=== PATIENT | male | born 1935 | race Caucasian/White ===

== ENCOUNTER 2018-12-14 01:32 | Emergency (ER) | payer OTHER ==
[2018-12-14 01:52] VITALS: TEMP 98.2; BMI 25.1
--- NOTE | 2018-12-14 01:55 | PDOC ---
Attending Attestation - Resident Resident Name: Ritesh Solitario - ED Attending Attestation I have performed the following: I have examined & evaluated the patient, The case was reviewed & discussed with the resident, I agree w/resident's findings & plan - HPI HPI: 12/14/18 04:29 83-year-old male status post mechanical fall striking the back of his head. Family is requesting blood work. - Physicial Exam PE: 12/14/18 04:30 Agree with resident's exam - Medical Decision Making 12/14/18 04:31 83-year-old male status post mechanical fall Family is requesting labs which were performed and indicating mild dehydration IV fluid normal saline 500 mL bolus given Family and patient advised to have them rechecked in 48-72 hours and encourage by mouth fluid intake CT scan of the head and cervical spine show no acute traumatic injury Laceration repair by the emergency medicine resident
--- NOTE | 2018-12-14 01:56 | PDOC ---
History of Present Illness - General Chief Complaint: Injury Stated Complaint: FALL,HEAD INJURY Time Seen by Provider: 12/14/18 01:50 - History of Present Illness Initial Comments: 12/14/18 01:53 83 yo M with h/o depression, HTN who p/w closed head injury s/p fall 1 hour [employer]. Patient reports sustaining fall this evening when ambulating in hallway. States that he slipped on rug, fell backwards hitting his head on floor, with subsequent bleeding. Was on ground 2 minutes, before up and ambulatory. Denies AC use. Does not recall last tetanus. Patient denies SANTILLAN, vision change, palpitations, cough, wheezing, orthopena, PND , leg swelling/pain, N/V, F,C, CP, SOB, urinary complaints, hematuria, BPR, abdominal pain, diarrhea, constipation, lightheadedness, weakness, sensory changes. PMHx: as noted above ROS: as noted SHx: Denies Etoh, IVDA, tobacco use Allergies: PCN Past History - Past Medical History Allergies/Adverse Reactions: Allergies Allergy/AdvReac Type Severity Reaction Status Date / Time Penicillins Allergy Verified 12/14/18 01:52 Home Medications: Ambulatory Orders Amlodipine Besylate/Benazepril [Lotrel ] 1 each PO DAILY 12/14/18 HTN: Yes - Suicide/Smoking/Psychosocial Hx Smoking History: Never smoked Have you smoked in the past 12 months: No Information on smoking cessation initiated: No Hx Alcohol Use: Yes (occasional) Drug/Substance Use Hx: No Review of Systems - Review of Systems Comments:: 12/14/18 01:54 GENERAL/CONSTITUTIONAL: No fever or chills. No weakness. HEAD, EYES, EARS, NOSE AND THROAT: No change in vision. No ear pain or discharge. No sore throat. CARDIOVASCULAR: No chest pain or shortness of breath RESPIRATORY: No cough, wheezing, or hemoptysis. GASTROINTESTINAL: No nausea, vomiting, diarrhea or constipation. GENITOURINARY: No dysuria, frequency, or change in urination. MUSCULOSKELETAL: No joint or muscle swelling or pain. No neck or back pain. SKIN: No rash NEUROLOGIC: No headache, vertigo, loss of consciousness, or change in strength/ sensation. ENDOCRINE: No increased thirst. No abnormal weight change HEMATOLOGIC/LYMPHATIC: No anemia, easy bleeding, or history of blood clots. ALLERGIC/IMMUNOLOGIC: No hives or skin allergy. *Physical Exam - Vital Signs Last Vital Signs Temp Pulse Resp BP Pulse Ox 98.2 F 66 20 200/101 H 98 12/14/18 01:32 12/14/18 01:32 12/14/18 01:32 12/14/18 01:32 12/14/18 01:32 - Physical Exam Comments: 12/14/18 01:54 GENERAL: Awake, alert, and fully oriented, in no acute distress HEAD: No signs of trauma, normocephalic, atraumatic EYES: PERRLA, EOMI, sclera anicteric, conjunctiva clear ENT: Auricles normal inspection, hearing grossly normal, nares patent, oropharynx clear without exudates. Moist mucosa NECK: Normal ROM, supple, no lymphadenopathy, JVD, or masses LUNGS: No distress, speaks full sentences, clear to auscultation bilaterally HEART: Regular rate and rhythm, normal S1 and S2, no murmurs, rubs or gallops, peripheral pulses normal and equal bilaterally. ABDOMEN: Soft, nontender, normoactive bowel sounds. No guarding, no rebound. No masses EXTREMITIES : Normal inspection, Normal range of motion, no edema. No clubbing or cyanosis. NEUROLOGICAL: Cranial nerves II through XII grossly intact. Normal speech, normal gait, no focal sensorimotor deficits SKIN: +posterior scalp laceration horizontal 1cm, with absent galeal involvement , foreign body, debris. Warm, Dry, normal turgor, no rashes or lesions noted Procedures - Laceration/Wound Repair Upper Posterior Head Wound Length: to 2.5 cm Wound's Depth, Shape: superficial Irrigated w/ Saline: Yes Betadine Prep: No Wound Debrided: minimal Wound Repaired With: Gravel Switch Suture Size/Type: 5:0 Number of Sutures: 6 Layer Closure: No Sterile Dressing Applied: No Splint Applied: No Sling Applied: No ED Treatment Course - LABORATORY CBC & Chemistry Diagram: 12/14/18 03:05 12/14/18 03:05 Medical Decision Making - Medical Decision Making 12/14/18 01:55 83 yo M with h/o depression, HTN who p/w closed head injury s/p fall 1 hour [employer]. BP 200/101, vitals otherwise wnl, AF, A&Ox3, GCS 15. Physical exam notable for +posterior scalp laceration horizontal 1cm, with absent galeal involvement, foreign body, debris. CTH r/o hemmrohage, hematoma, skull fracture. No evidence of basilar skull fracture. C-spine CT. Pain control, reassess. No other obvious bony abnml, warranting imaging. ED Course: CTH, C-spine Tylenol, Amlodipine, Lisinopril 12/14/18 02:33 EKG: Sinus rhtyhm with 1st degree AV block RBBB.Absent JC, STD. Left ant fasc block. 12/14/18 03:52 CTH: No acute change. Scalp laceration C-spine: No acute fracture or subluxation 12/14/18 04:28 Suture repair with 6 monica, irrigtated Patient advised to return to ED in 7 days for suture removal and wound check CBC unremakable BUN/Cr: 21/1.7 1/2 L NS 12/14/18 05:26 BP 180/90 Patient stable for d/c with return precautions. *DC/Admit/Observation/Transfer Diagnosis at time of Disposition: Fall Qualifiers: Encounter type: initial encounter Qualified Code(s): W19.XXXA - Unspecified fall, initial encounter Head injury due to trauma Qualifiers: Encounter type: initial encounter Qualified Code(s): S09.90XA - Unspecified injury of head, initial encounter - Discharge Dispostion Condition at time of disposition: Stable Decision to Admit order: No - Referrals Referrals: Natanael Arciniega MD [Primary Care Provider] - - Patient Instructions Printed Discharge Instructions: DI for Laceration Repair of the Scalp Additional Instructions: Please return to the emergency department with any new or worsening symptoms or concerns. Please follow up with your primary care physician within 72 hours. Please return to ED in 7 days for staple removal and wound check. - Post Discharge Activity
[2018-12-14] MEDS ORDERED: DIPHTH,PERTUSS(ACELL),TET 0.5 ML DISP.SYRIN IM ONE ×2 (02:15→02:29)
[2018-12-14] MEDS ORDERED: ACETAMINOPHEN 325 MG TABLET (FP) PO ONE (02:31)
[2018-12-14] MEDS ORDERED: ACETAMINOPHEN 325 MG TABLET (FP) ONE (02:35)
[2018-12-14 03:27] LABS: BASO % 0.3 % (0-2.0); EOS % 0.7 % (0-4.5); HEMATOCRIT 38.5 % (35.4-49); HEMOGLOBIN 12.9 GM/dL (11.7-16.9); LYMPH % 12.5 % (8-40); MCH 28.3 pg (25.7-33.7); MCHC 33.5 g/dl (32.0-35.9); MEAN CELL VOLUME 84.7 fl (80-96); MEAN PLT VOLUME 7.5 fl (7.5-11.1); MONO % 4.8 % (3.8-10.2); NEUT % 81.7 % (42.8-82.8); PLATELET COUNT 156 K/MM3 (134-434); RBC 4.55 M/mm3 (4.00-5.60); RDW 14.8 % (11.9-15.9); WHITE BLOOD COUNT 7.5 K/mm3 (4.0-10.0)
[2018-12-14] MEDS ORDERED: amLODIPine BESYLATE 10 MG TABLET (FP) PO ONE (03:57)
[2018-12-14] MEDS ORDERED: LISINOPRIL 10 MG TABLET (FP) PO ONE (03:58)
[2018-12-14 04:00] LABS: ALBUMIN 3.7 g/dl (3.4-5.0); ALK PHOS 61 U/L (45-117); ANION GAP 7 MMOL/L (8-16); BILIRUBIN,TOTAL 0.6 mg/dL (0.2-1); BLOOD UREA NITROGEN 21 mg/dL (7-18); CALCIUM 9.7 mg/dL (8.5-10.1); CHLORIDE 105 mmol/L (98-107); CO2 27 mmol/L (21-32); CREATININE 1.7 mg/dL (0.55-1.3); GLUCOSE,RANDOM 115 mg/dL (74-106); POTASSIUM 4.1 mmol/L (3.5-5.1); SGOT/AST 10 U/L (15-37); SGPT/ALT 10 U/L (13-61); SODIUM 139 mmol/L (136-145); TOT PROT 6.2 g/dl (6.4-8.2)
[2018-12-14] MEDS ORDERED: LISINOPRIL 5 MG TABLET (FP) ONE (04:02)
[2018-12-14] MEDS ORDERED: amLODIPine BESYLATE 5 MG TABLET (FP) ONE (04:02)
[2018-12-14] MEDS ORDERED: SODIUM CHLORIDE 500 ML IV STA (04:29)
[2018-12-14 05:18] VITALS: BP 180/90; PULSE 60
--- NOTE | 2018-12-14 09:58 | EKG ---
Test Reason : Blood Pressure : / mmHG Vent. 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
== END 2018-12-14 05:39 | disposition home or self-care (01) ==
LOC: JER 01:32
PROC: 0HQ0XZZ Repair Scalp Skin, External Approach (ICD-10-PCS; principal; 2018-12-14)
PROC: 3E0337Z Introduction of Electrolytic and Water Balance Substance into Peripheral Vein, Percutaneous Approach (ICD-10-PCS; 2018-12-14)
PROC: 3E0234Z Introduction of Serum, Toxoid and Vaccine into Muscle, Percutaneous Approach (ICD-10-PCS; 2018-12-14)
DX: S01.01XA Laceration without foreign body of scalp, initial encounter (principal); W18.09XA Striking against other object with subsequent fall, initial encounter; Y93.89 Activity, other specified; Y92.018 Other place in single-family (private) house as the place of occurrence of the external cause; Y99.8 Other external cause status; I10 Essential (primary) hypertension
CPT/HCPCS: 12001-25; 36415; 70450-TC; 72125-TC; 80053; 84484; 85025; 90471; 90715; 93005; 93010; 96360; 99282-25